=== PATIENT | female | born 1980 | race Caucasian/White ===

== ENCOUNTER 2016-08-22 00:47 | Emergency (ER) | payer MEDICAID, OTHER ==
[2016-08-22 00:56] VITALS: BP 128/83; PULSE 82; RESP 18; TEMP 98
--- NOTE | 2016-08-22 01:36 | ED ---
Upper Extremity HPI - General Chief Complaint: Extremity Injury, Upper Stated Complaint: elbow pain- [facility] Time Seen by Provider: 08/22/16 01:05 Source: patient, RN notes reviewed, old records reviewed Mode of arrival: ambulatory Limitations: no limitations - History of Present Illness Initial Comments: Patient is a 35-year-old female with chief complaint of right elbow pain after trying to pull a patient bed. She is a registered nurse. Patient reports that she felt a clicking sensation in her right right elbow. She denies any specific bony tenderness. She states that the pain is worse with flexing and extending her wrist. She denies any pain with supination and pronation. Patient states that she's never had any injuries on her elbow or wrist before.Patient denies any recent fever, chills, shortness of breath, chest pain , back pain, abdominal pain, nausea vomiting, numbness or tingling, dysuria or hematuria, constipation or diarrhea, headaches or visual changes, or any other current symptoms - Related Data Home Medications Medication Instructions Recorded Confirmed No Known Home Medications [No 08/22/16 08/22/16 Known Home Medications] Allergies Allergy/AdvReac Type Severity Reaction Status Date / Time No Known Allergies Allergy Verified 08/22/16 00:53 Review of Systems ROS Statement: Those systems with pertinent positive or pertinent negative responses have been documented in the HPI. ROS Other: All systems not noted in ROS Statement are negative. Past Medical History Additional Past Medical History / Comment(s): celiac History of Any Multi-Drug Resistant Organisms: None Reported Past Surgical History: Adenoidectomy, Tonsillectomy Past Psychological History: No Psychological Hx Reported Smoking Status: Never smoker Past Alcohol Use History: None Reported Past Drug Use History: None Reported General Exam - General Exam Comments Initial Comments: Well-appearing 35-year-old female. No acute distress. Limitations: no limitations General appearance: alert, in no apparent distress Head exam: Present: atraumatic, normocephalic, normal inspection Eye exam: Present: normal appearance, PERRL, EOMI. Absent: scleral icterus, conjunctival injection, periorbital swelling ENT exam: Present: normal exam, mucous membranes moist Neck exam: Present: normal inspection. Absent: tenderness, meningismus, lymphadenopathy Respiratory exam: Present: normal lung sounds bilaterally. Absent: respiratory distress, wheezes, rales, rhonchi, stridor Cardiovascular Exam: Present: regular rate, normal rhythm, normal heart sounds. Absent: systolic murmur, diastolic murmur, rubs, gallop, clicks GI/Abdominal exam: Present: soft, normal bowel sounds. Absent: distended, tenderness, guarding, rebound, rigid Extremities exam: Present: normal inspection, full ROM, normal capillary refill. Absent: tenderness, pedal edema, joint swelling, calf tenderness Right Shoulder Exam: Present: normal inspection, full ROM. Absent: tenderness, swelling, abrasion Upper Arm exam: Present: normal inspection, full ROM. Absent: tenderness, swelling Elbow exam: Present: normal inspection, full ROM, swelling (Mild swelling over the olecranon process.). Absent: tenderness, abrasion Forearm Wrist exam: Present: normal inspection, full ROM Hand Wrist exam: Present: normal inspection, full ROM. Absent: tenderness, swelling, abrasion Back exam: Present: normal inspection Neurological exam: Present: alert, oriented X3, CN II-XII intact Psychiatric exam: Present: normal affect, normal mood Skin exam: Present: warm, dry, intact, normal color. Absent: rash Course Vital Signs 08/22/16 00:53 Temperature 98.0 F Pulse Rate 82 Respiratory 18 Rate Blood Pressure 128/83 O2 Sat by Pulse 98 Oximetry Medical Decision Making - Medical Decision Making Right elbow x-ray was obtained. Patient reports that she does not want any pain medication and just wants to put ice over her elbow. Patient's x-rays reviewed as negative for any acute process. Patient was given an Chang wrap. I will give the patient referral for orthopedic physician. Is likely patient has a tendon or ligament disruption causing the pain. Patient was advised of this and understands treatment plan will comply. Return parameters were discussed. Patient was given a return to work slip with limited use of the right arm and elbow. I told her to limit pushing and pulling things and to ice the arm as much as possible. - Radiology Data Radiology results: report reviewed X-ray shows no evidence of any acute fracture dislocation. His regular Dr. Ifeanyi malik. Disposition Clinical Impression: Sprain of right elbow Disposition: HOME SELF-CARE Condition: Good Instructions: Elbow Sprain (ED) Additional Instructions: Patient was sitting Motrin Tylenol for pain. Patient advised to keep elbow and Chang wrap. Follow-up with orthopedic physician if symptoms continue to persist. Referrals: None,Stated [Primary Care Provider] - 1-2 days Rashawn Boone MD [Medical Doctor] - 1-2 days Time of Disposition: 01:36
--- NOTE | 2016-08-22 01:46 | XR ---
EXAMINATION TYPE: XR elbow complete RT DATE OF EXAM: 08/22/2016 1:21 AM CLINICAL HISTORY: pain TECHNIQUE: Frontal, lateral and oblique images of the right elbow are obtained. COMPARISON: None. FINDINGS: There is no acute fracture/dislocation evident of the elbow. No abnormal fat pad signs ar e seen. The overlying soft tissue appears unremarkable. IMPRESSION: There is no acute fracture or dislocation of the elbow. ICD 10 NO FRACTURE, INITIAL EVALUATION
== END 2016-08-22 01:50 | disposition home or self-care (01) ==
LOC: EC 00:47
DX: S53.401A Unspecified sprain of right elbow, initial encounter (principal); X50.9XXA Other and unspecified overexertion or strenuous movements or postures, initial encounter; Y93.89 Activity, other specified; Y92.69 Other specified industrial and construction area as the place of occurrence of the external cause; Y99.0 Civilian activity done for income or pay
CPT/HCPCS: 99283

== ENCOUNTER 2017-10-26 07:43 | Emergency (ER) | payer MEDICAID ==
[2017-10-26 07:47] VITALS: RESP 18; TEMP 97.6
--- NOTE | 2017-10-26 08:46 | XR ---
EXAMINATION TYPE: XR foot complete LT DATE OF EXAM: 10/26/2017 COMPARISON: NONE HISTORY: Pain TECHNIQUE: Three views are submitted. FINDINGS: The osseous structures are intact and the joint spaces are preserved. There is no acute fracture or dislocation. Nonspecific soft tissue edema noted. IMPRESSION: 1. No acute fracture or dislocation. If symptoms persist, follow-up exam in 7 to 10 days could be ob tained.
--- NOTE | 2017-10-26 08:50 | ED ---
Extremity Problem HPI - General Chief complaint: Extremity Problem,Nontraumatic Stated complaint: swollen ankle Time Seen by Provider: 10/26/17 08:17 Source: patient, RN notes reviewed Mode of arrival: ambulatory Limitations: no limitations - History of Present Illness Initial comments: This is a 37-year-old female presents emergency department to complaint of swelling to her left foot. She states this has been present for last 2-3 weeks with no reason. She states that she was seen at [facility] had x-rays three-view with no acute abnormality's. She states Veto 8 months ago she had an ankle sprain and they just assume is worse cause of it. Patient states that she did have slight discomfort in her left calf left popliteal region though she has no prior history DVT denies any injury. She denies chest pain, shortness of breath. She states the redness on her foot dissipates only present when she wears a shoe rubs or foot. Patient states that she had labwork this morning showed a mild elevation white count within normal sed rate and uric acid. Patient states that the swelling is worse with denies any fevers or chills. - Related Data Home Medications Medication Instructions Recorded Confirmed No Known Home Medications [No 08/22/16 10/26/17 Known Home Medications] Allergies Allergy/AdvReac Type Severity Reaction Status Date / Time gluten Allergy Rash/Hives Verified 10/26/17 07:51 Review of Systems ROS Statement: Those systems with pertinent positive or pertinent negative responses have been documented in the HPI. ROS Other: All systems not noted in ROS Statement are negative. Past Medical History Additional Past Medical History / Comment(s): celiac History of Any Multi-Drug Resistant Organisms: None Reported Past Surgical History: Adenoidectomy, Tonsillectomy Past Psychological History: No Psychological Hx Reported Smoking Status: Never smoker Past Alcohol Use History: None Reported Past Drug Use History: None Reported General Exam Limitations: no limitations General appearance: alert, in no apparent distress Head exam: Present: atraumatic, normocephalic, normal inspection Eye exam: Present: normal appearance, PERRL, EOMI. Absent: scleral icterus, conjunctival injection, periorbital swelling Respiratory exam: Present: normal lung sounds bilaterally. Absent: respiratory distress, wheezes, rales, rhonchi, stridor Cardiovascular Exam: Present: regular rate, normal rhythm, normal heart sounds. Absent: systolic murmur, diastolic murmur, rubs, gallop, clicks Extremities exam: Present: other (Left foot there is moderate swelling pedal pulses are equal bilaterally there is tenderness on the dorsal aspect of the foot with no tenderness on the plantar surface Refill less than 2 seconds, there is no tenderness over left malleolus region, there is no calf tenderness or no tenderness to left knee. Left knee full range of motion there is no warmth the left foot or left leg) Neurological exam: Present: alert, oriented X3, CN II-XII intact. Absent: motor sensory deficit Skin exam: Present: warm, dry, intact, normal color. Absent: rash Course Vital Signs 10/26/17 10/26/17 07:43 09:15 Temperature 97.6 F Pulse Rate 94 78 Respiratory 18 18 Rate Blood Pressure 126/76 118/70 O2 Sat by Pulse 100 98 Oximetry Medical Decision Making - Medical Decision Making This is a 37-year-old female presented to the emergency department for left foot swelling. Patient had x-ray and ultrasound in the ER which was negative for acute fracture or evidence of DVT. Patient had lab work this morning which I did review ESR was low-normal, normal uric acid. There is no major abnormalities. I did explain the patient that there is no evident cause for her foot edema that she should follow-up with orthopedics may require MRI versus nuclear med study. She does agree to this plan. She will continue to conservative treatment with ibuprofen elevation and ice and return for any worsening symptoms. Disposition Clinical Impression: Foot swelling, Left foot pain Disposition: HOME SELF-CARE Condition: Stable Instructions: Leg Edema (ED) Additional Instructions: Please return to the Emergency Department if symptoms worsen or any other concerns. Is patient prescribed a controlled substance at d/c from ED?: No Referrals: Rashawn Boone MD [Medical Doctor] - 1-2 days Time of Disposition: 09:38
[2017-10-26 09:16] VITALS: BP 118/70; PULSE 78
--- NOTE | 2017-10-26 09:23 | US ---
EXAMINATION TYPE: US venous doppler duplex LE LT DATE OF EXAM: 10/26/2017 8:27 AM COMPARISON: NONE CLINICAL HISTORY: Pain, swelling, and redness in left foot. SIDE PERFORMED: Left TECHNIQUE: The lower extremity deep venous system is examined utilizing real time linear array sonog maya with graded compression, doppler sonography and color-flow sonography. VESSELS IMAGED: External Iliac Vein (EIV) Common Femoral Vein Deep Femoral Vein Greater Saphenous Vein * Femoral Vein Popliteal Vein Small Saphenous Vein * Proximal Calf Veins (* superficial vessels) Left Leg: Negative for DVT IMPRESSION: 1. No diagnostic evidence of DVT as visualized.
== END 2017-10-26 09:50 | disposition home or self-care (01) ==
LOC: EC 07:43
DX: M79.89 Other specified soft tissue disorders (principal); M79.672 Pain in left foot; Z91.018 Allergy to other foods
CPT/HCPCS: 36415; 80053; 83520; 84443; 84550; 85027; 85652; 86038; 86060; 86140; 86431; 86618; 86812; 99284

== ENCOUNTER → 2017-10-26 | Outpatient (CLI) | payer MEDICAID ==
[2017-10-26 02:19] LABS: HCT 36.8 % (34.0-46.0); HGB 13.3 gm/dL (11.4-16.0); MCH 30.2 pg (25.0-35.0); MCHC 36.1 g/dL (31.0-37.0); MCV 83.5 fL (80.0-100.0); Mean Platelet Volume 6.7; Platelet Count 321 k/uL (150-450); RDW 13.1 % (11.5-15.5); WBC 12.1 k/uL (3.8-10.6)
[2017-10-26 03:11] LABS: ALT 18 U/L (9-52); AST 12 U/L (14-36); Albumin 4.1 g/dL (3.5-5.0); Alkaline Phosphatase 53 U/L (38-126); Anion Gap 15 mmol/L; Blood Urea Nitrogen 15 mg/dL (7-17); Calcium 9.6 mg/dL (8.4-10.2); Carbon Dioxide 26 mmol/L (22-30); Chloride 101 mmol/L (98-107); Glucose 100 mg/dL (74-99); Potassium 3.9 mmol/L (3.5-5.1); Sodium 142 mmol/L (137-145); Total Bilirubin 0.2 mg/dL (0.2-1.3); Total Protein 6.5 g/dL (6.3-8.2); Uric Acid 5.8 mg/dL (3.7-7.4)
[2017-10-26 04:12] LABS: Erythrocyte Sedimentation Rate 6 mm/hr (0-20)
== END | disposition home or self-care (01) ==
LOC: LABMAIN 02:00
PROVIDERS: ATTEND Hospitalist
DX: Z53.9 Procedure and treatment not carried out, unspecified reason (principal)
CPT/HCPCS: 36415; 80053; 84550; 85027; 85652

== ENCOUNTER → 2017-10-26 | Outpatient (CLI) | payer MEDICAID ==
[2017-10-26 17:12] LABS: HCT 36.4 % (34.0-46.0); MCH 30.6 pg (25.0-35.0); MCHC 35.9 g/dL (31.0-37.0); MCV 85.1 fL (80.0-100.0); Mean Platelet Volume 7.5; Platelet Count 304 k/uL (150-450); RBC 4.27 m/uL (3.80-5.40); RDW 13.4 % (11.5-15.5); WBC 10.1 k/uL (3.8-10.6)
[2017-10-26 17:17] LABS: C Reactive Protein 9.2 mg/L (<10.0); Uric Acid 5.7 mg/dL (3.7-7.4)
[2017-10-26 19:25] LABS: Erythrocyte Sedimentation Rate 7 mm/hr (0-20)
[2017-10-27 02:07] LABS: Rheumatoid Factor 4 IU/mL (0-15); Streptolysin O Ab(ASO) <25 IU/mL (0-200)
[2017-10-27 13:33] LABS: HLA B27 NEGATIVE
== END | disposition home or self-care (01) ==
LOC: LABWHC1 16:10
PROVIDERS: ATTEND Orthopaedic Surgery
DX: Z53.9 Procedure and treatment not carried out, unspecified reason (principal)
CPT/HCPCS: 36415; 83520; 84443; 84550; 85027; 85652; 86038; 86060; 86140; 86431; 86618; 86812

== ENCOUNTER 2018-05-03 02:24 | Emergency (ER) | payer MEDICAID ==
[2018-05-03 02:30] VITALS: TEMP 99.2
--- NOTE | 2018-05-03 03:09 | ED ---
URI HPI - General Source: patient, RN notes reviewed, old records reviewed Mode of arrival: ambulatory Limitations: no limitations <Whitney Hartman - Last Filed: 05/03/18 04:12> <iMranda Quick P - Last Filed: 05/03/18 05:05> - General Chief Complaint: Upper Respiratory Infection Stated Complaint: SOB,Chest pain Time Seen by Provider: 05/03/18 02:37 - History of Present Illness Initial Comments: 37-year-old female presents emergency Department due to complaint of increasing shortness of breath and cough over the past month. 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 She denies any specific chest pain without taking a deep breath. She reports that she's had a dry cough. She is a nonsmoker. Patient relates that she has had no recent fevers or chills. Patient states she has no cardiac history. Patient denies any history of lung disease or asthma. Patient reports that she feels flushed. She states she took her pulse ox this morning and was 87% on room air. She reports she had some wheezing and rhonchi noted at that time. Patient relates that she's had no abdominal pain. Denies any weight loss. (Whitney Hartman) - Related Data Previous Rx's Medication Instructions Recorded Azithromycin 250 mg PO DAILY 4 Days #4 tab 05/03/18 Allergies Allergy/AdvReac Type Severity Reaction Status Date / Time gluten Allergy Rash/Hives Verified 05/03/18 02:30 Review of Systems ROS Other: All systems not noted in ROS Statement are negative. <Whitney Hartman - Last Filed: 05/03/18 04:12> ROS Other: All systems not noted in ROS Statement are negative. <Miranda Quick P - Last Filed: 05/03/18 05:05> ROS Statement: Those systems with pertinent positive or pertinent negative responses have been documented in the HPI. Past Medical History Additional Past Medical History / Comment(s): celiac History of Any Multi-Drug Resistant Organisms: None Reported Past Surgical History: Adenoidectomy, Tonsillectomy Past Psychological History: No Psychological Hx Reported Smoking Status: Never smoker Past Alcohol Use History: None Reported Past Drug Use History: None Reported <Whitney Hartman - Last Filed: 05/03/18 04:12> General Exam Limitations: no limitations General appearance: alert, in no apparent distress Head exam: Present: atraumatic, normocephalic, normal inspection Eye exam: Present: normal appearance, PERRL, EOMI. Absent: scleral icterus, conjunctival injection, periorbital swelling ENT exam: Present: normal exam, normal oropharynx, mucous membranes moist Neck exam: Present: normal inspection. Absent: tenderness, meningismus, lymphadenopathy Respiratory exam: Present: normal lung sounds bilaterally. Absent: respiratory distress, wheezes, rales, rhonchi, stridor Cardiovascular Exam: Present: regular rate, normal rhythm, normal heart sounds. Absent: systolic murmur, diastolic murmur, rubs, gallop, clicks GI/Abdominal exam: Present: soft, normal bowel sounds. Absent: distended, tenderness, guarding, rebound, rigid Extremities exam: Present: normal inspection, full ROM, normal capillary refill. Absent: tenderness, pedal edema, joint swelling, calf tenderness Back exam: Present: normal inspection Neurological exam: Present: alert, oriented X3, CN II-XII intact Psychiatric exam: Present: normal affect, normal mood Skin exam: Present: warm, dry, intact, normal color. Absent: rash <Whitney Hartman - Last Filed: 05/03/18 04:12> <Miranda Quick - Last Filed: 05/03/18 05:05> - General Exam Comments Initial Comments: Well-appearing 37-year-old female. (Whitney Hartman) Vital Signs 05/03/18 05/03/18 05/03/18 02:26 03:36 03:46 Temperature 99.2 F Pulse Rate 108 H 84 80 Respiratory 20 Rate Blood Pressure 119/74 O2 Sat by Pulse 98 Oximetry 05/03/18 05/03/18 05/03/18 04:10 04:20 04:30 Temperature Pulse Rate 103 H 107 H 102 H Respiratory 19 14 8 L Rate Blood Pressure 132/86 132/86 132/86 O2 Sat by Pulse Oximetry 05/03/18 05/03/18 04:40 04:50 Temperature Pulse Rate 98 103 H Respiratory 13 12 Rate Blood Pressure 119/72 119/72 O2 Sat by Pulse Oximetry Medical Decision Making - Radiology Data Radiology results: report reviewed <Whitney Hartman - Last Filed: 05/03/18 04:12> - Lab Data Result diagrams: 05/03/18 03:57 05/03/18 03:57 <Miranda Quick - Last Filed: 05/03/18 05:05> - Medical Decision Making This Patient is a 37-year-old female with progressive shortness of breath, feeling flushed and cough for the past month. Patient is a nurse. Lungs are clear to auscultation and vital signs have been stable she is slightly febrile at 99.2 tachycardia and 102 bpm. Patient had a chest x-ray which showed diffuse multifocal opacities and recommended a CT of her chest. (Whitney Hartman ) Patient care was signed out to me by Whitney Hartman PA-C, patient presented with 1 day of cough. 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 She's had no international travel, has no history of any type of immunocompromise, is not diabetic, has no history of fungal infection the past. Patient's chest x-ray revealed a multifocal pneumonia versus metastatic disease and recommended a CT. Computed tomography scan was ordered and reviewed , CT scan reveals multifocal pneumonia of unknown etiology, the etiology was broad. However Patient's has no risk factors, is hemodynamically stable, not hypoxic. I offered the patient admission to the hospital for evaluation by pulmonology, however the patient would like to decline admission at this time. She is comfortable being discharged home and attempting a course of oral antibiotics. Considering that the patient is relatively young, healthy with no hypoxia, uremia, confusion or shortness of breath I do feel she is stable for discharge home. Return parameters were discussed. The first dose of azithromycin was ordered in the emergency department and a prescription for the remainder dose was provided. (Miranda Quick) - Lab Data Lab Results 05/03/18 05/03/18 05/03/18 Range/Units 03:57 03:57 03:57 WBC 16.8 H (3.8-10.6) k/uL RBC 4.51 (3.80-5.40) m/uL Hgb 13.5 (11.4-16.0) gm/dL Hct 39.2 (34.0-46.0) % MCV 86.9 (80.0-100.0) fL MCH 30.0 (25.0-35.0) pg MCHC 34.5 (31.0-37.0) g/dL RDW 13.1 (11.5-15.5) % Plt Count 307 (150-450) k/uL Neutrophils % 68 % Lymphocytes % 17 % Monocytes % 7 % Eosinophils % 6 % Basophils % 0 % Neutrophils # 11.5 H (1.3-7.7) k/uL Lymphocytes # 2.8 (1.0-4.8) k/uL Monocytes # 1.2 H (0-1.0) k/uL Eosinophils # 1.0 H (0-0.7) k/uL Basophils # 0.1 (0-0.2) k/uL PT (9.0-12.0) sec INR (<1.2) APTT (22.0-30.0) sec Sodium 139 (137-145) mmol/L Potassium 3.7 (3.5-5.1) mmol/L Chloride 103 (98-107) mmol/L Carbon Dioxide 27 (22-30) mmol/L Anion Gap 9 mmol/L BUN 9 (7-17) mg/dL Creatinine 0.70 (0.52-1.04) mg/dL Est GFR (CKD-EPI)AfAm >90 (>60 ml/min/1.73 sqM) Est GFR (CKD-EPI)NonAf >90 (>60 ml/min/1.73 sqM) Glucose 124 H (74-99) mg/dL Calcium 9.5 (8.4-10.2) mg/dL Magnesium 2.0 (1.6-2.3) mg/dL Total Bilirubin 0.4 (0.2-1.3) mg/dL AST 15 (14-36) U/L ALT 28 (9-52) U/L Alkaline Phosphatase 56 (38-126) U/L Total Creatine Kinase 30 (30-135) U/L CK-MB (CK-2) <0.2 (0.0-2.4) ng/mL CK-MB (CK-2) Rel Index Troponin I <0.012 (0.000-0.034) ng/mL Total Protein 6.6 (6.3-8.2) g/dL Albumin 3.7 (3.5-5.0) g/dL 05/03/18 Range/Units 03:57 WBC (3.8-10.6) k/uL RBC (3.80-5.40) m/uL Hgb (11.4-16.0) gm/dL Hct (34.0-46.0) % MCV (80.0-100.0) fL MCH (25.0-35.0) pg MCHC (31.0-37.0) g/dL RDW (11.5-15.5) % Plt Count (150-450) k/uL Neutrophils % % Lymphocytes % % Monocytes % % Eosinophils % % Basophils % % Neutrophils # (1.3-7.7) k/uL Lymphocytes # (1.0-4.8) k/uL Monocytes # (0-1.0) k/uL Eosinophils # (0-0.7) k/uL Basophils # (0-0.2) k/uL PT 10.6 (9.0-12.0) sec INR 1.1 (<1.2) APTT 27.1 (22.0-30.0) sec Sodium (137-145) mmol/L Potassium (3.5-5.1) mmol/L Chloride (98-107) mmol/L Carbon Dioxide (22-30) mmol/L Anion Gap mmol/L BUN (7-17) mg/dL Creatinine (0.52-1.04) mg/dL Est GFR (CKD-EPI)AfAm (>60 ml/min/1.73 sqM) Est GFR (CKD-EPI)NonAf (>60 ml/min/1.73 sqM) Glucose (74-99) mg/dL Calcium (8.4-10.2) mg/dL Magnesium (1.6-2.3) mg/dL Total Bilirubin (0.2-1.3) mg/dL AST (14-36) U/L ALT (9-52) U/L Alkaline Phosphatase (38-126) U/L Total Creatine Kinase (30-135) U/L CK-MB (CK-2) (0.0-2.4) ng/mL CK-MB (CK-2) Rel Index Troponin I (0.000-0.034) ng/mL Total Protein (6.3-8.2) g/dL Albumin (3.5-5.0) g/dL 05/03/18 04:12 EKG performed at 401 shows sinus tachycardia low blood curious. Cannot rule out inferior infarct age undetermined. Cannot rule out anterior infarct age undetermined. Ventricular rate of [address] interval is 138 ms. QRS duration 86 ms. QT QTc is 346/461 ms. No evidence of ST elevation or T-wave inversion. (Whitney Hartman) - Radiology Data Diffuse multifocal patchy opacities versus mass within the lungs bilaterally. Recommended CT of the chest with contrast. (Whitney Hartman) Disposition <Whitney Hartman - Last Filed: 05/03/18 04:12> Is patient prescribed a controlled substance at d/c from ED?: No <Miranda Quick - Last Filed: 05/03/18 05:05> Clinical Impression: Multifocal pneumonia Disposition: HOME SELF-CARE Instructions: Bacterial Pneumonia (DC) Prescriptions: Azithromycin 250 mg PO DAILY 4 Days #4 tab Referrals: None,Stated [Primary Care Provider] - 1-2 days
[2018-05-03] MEDS ORDERED: ACETAMINOPHEN TAB 500 MG TAB PO STA (03:26)
[2018-05-03] MEDS ORDERED: IBUPROFEN 600 MG TAB PO STA (03:26)
[2018-05-03] MEDS ORDERED: IPRATROPIUM-ALBUTEROL 3 ML NEB INHALATION STA (03:27)
--- NOTE | 2018-05-03 03:27 | XR ---
EXAM: XR Chest, 2 Views CLINICAL HISTORY: ITS.REASON XR Reason: Pain TECHNIQUE: Frontal and lateral views of the chest. COMPARISON: No relevant prior studies available. FINDINGS: Lungs: Multifocal diffuse mass versus patchy opacities throughout the lungs. Pleural space: No effusion. Heart: No cardiomegaly. Mediastinum: Unremarkable. Bones/joints: No acute findings. IMPRESSION: Diffuse multifocal patchy opacities versus mass within the lungs bilaterally. Recommend chest CT with contrast.
[2018-05-03] MEDS ORDERED: SODIUM CHLORIDE 0.9% 1,000 ML IV STA (03:30)
[2018-05-03 04:13] LABS: Basophils # (A) 0.1 k/uL (0-0.2); Basophils % (A) 0 %; Eosinophils % (A) 6 %; HCT 39.2 % (34.0-46.0); HGB 13.5 gm/dL (11.4-16.0); Lymphocytes # (A) 2.8 k/uL (1.0-4.8); Lymphocytes % (A) 17 %; MCHC 34.5 g/dL (31.0-37.0); MCV 86.9 fL (80.0-100.0); Mean Platelet Volume 7.2; Monocytes # (A) 1.2 k/uL (0-1.0); Monocytes % (A) 7 %; Neutrophils # (A) 11.5 k/uL (1.3-7.7); Neutrophils % (A) 68 %; Platelet Count 307 k/uL (150-450); RBC 4.51 m/uL (3.80-5.40); RDW 13.1 % (11.5-15.5); WBC 16.8 k/uL (3.8-10.6)
[2018-05-03 04:23] LABS: ALT 28 U/L (9-52); AST 15 U/L (14-36); Albumin 3.7 g/dL (3.5-5.0); Alkaline Phosphatase 56 U/L (38-126); Anion Gap 9 mmol/L; Blood Urea Nitrogen 9 mg/dL (7-17); Calcium 9.5 mg/dL (8.4-10.2); Carbon Dioxide 27 mmol/L (22-30); Chloride 103 mmol/L (98-107); Glucose 124 mg/dL (74-99); Potassium 3.7 mmol/L (3.5-5.1); Sodium 139 mmol/L (137-145); Total Bilirubin 0.4 mg/dL (0.2-1.3); Total Protein 6.6 g/dL (6.3-8.2)
[2018-05-03 04:24] LABS: INR 1.1 (<1.2); Partial Thromboplastin Time 27.1 sec (22.0-30.0); Prothrombin Time 10.6 sec (9.0-12.0)
[2018-05-03 04:35] LABS: Creatine Kinase 30 U/L (30-135)
[2018-05-03 04:48] LABS: Creatine Kinase MB <0.2 ng/mL (0.0-2.4); Troponin I <0.012 ng/mL (0.000-0.034)
--- NOTE | 2018-05-03 04:51 | CT ---
EXAM: CT Angiography Chest With Intravenous Contrast CLINICAL HISTORY: ITS.REASON CT Reason: Pain TECHNIQUE: Axial computed tomographic angiography images of the chest with intravenous contrast using pulmonary embolism protocol. CTDI is 13 mGy and DLP is 382 mGy-cm. This CT exam was performed using one or more of the following dose reduction techniques: automated exposure control, adjustment of the mA and/or kV according to patient size, and/or use of iterative reconstruction technique. MIP reconstructed images were created and reviewed. COMPARISON: Chest x-ray same day FINDINGS: Pulmonary arteries: No filling defects. Aorta: No acute findings. No thoracic aortic aneurysm. Lungs: Multifocal numerous mandy-bronchovascular consolidations throughout the lungs, some which has a reverse halo sign. Pleural space: Trace bilateral pleural effusions. Heart: No cardiomegaly or pericardial effusion. Bones/joints: No acute fracture or dislocation. Mild degenerative changes. Soft tissues: Unremarkable. Lymph nodes: No enlarged lymph nodes. IMPRESSION: 1. Multifocal numerous consolidations throughout the lungs with bilateral trace pleural effusions. Given the appearance of the consolidations, some of which appears to have a reverse halo sign and is distributed along the mandy-bronchovascular structures, the differential is broad but this may represent organizing pneumonia (such as cryptogenic type), opportunistic/fungal infection, atypical bacteria, typical bacteria, or mycobacterial infection. Recommend pulmonary consultation. Recommend follow-up imaging in 6-8 weeks to ensure resolution after appropriate treatment.
[2018-05-03] MEDS ORDERED: AZITHROMYCIN 500 MG TAB PO STA (05:02)
[2018-05-03 05:33] VITALS: BP 122/76; PULSE 99; RESP 36
== END 2018-05-03 05:34 | disposition home or self-care (01) ==
LOC: EC 02:24
DX: J18.9 Pneumonia, unspecified organism (principal); R06.2 Wheezing; R00.0 Tachycardia, unspecified; Z53.29 Procedure and treatment not carried out because of patient's decision for other reasons; Z91.018 Allergy to other foods
CPT/HCPCS: 36415; 94640; 93005; 80053; 82550; 82553; 83735; 84484; 85025; 85610; 85730; 71046; 71275; 99285; 96360; Q9967

== ENCOUNTER → 2018-05-06 | Outpatient (CLI) | payer MEDICAID | LOC: LABWHC1 16:25 | PROVIDERS: ATTEND Internal Medicine Critical Care Medicine | DX: J18.9 Pneumonia, unspecified organism (principal) | CPT/HCPCS: 87449 ==

== ENCOUNTER 2022-06-22 01:06 | Emergency (ER) | payer OTHER, MEDICAID ==
[2022-06-22 01:12] VITALS: BP 141/89; PULSE 113; RESP 18; TEMP 97.8
--- NOTE | 2022-06-22 01:27 | ED ---
Back Pain HPI - General Chief Complaint: Back Pain/Injury Stated Complaint: [facility] back injury Time Seen by Provider: 06/22/22 01:15 Source: patient Limitations: no limitations - Related Data Previous Rx's Medication Instructions Recorded Azithromycin 250 mg PO DAILY 4 Days #4 tab 05/03/18 Allergies Allergy/AdvReac Type Severity Reaction Status Date / Time gluten Allergy Rash/Hives Verified 06/22/22 01:12 Review of Systems ROS Statement: Those systems with pertinent positive or pertinent negative responses have been documented in the HPI. ROS Other: All systems not noted in ROS Statement are negative. Past Medical History Additional Past Medical History / Comment(s): celiac History of Any Multi-Drug Resistant Organisms: None Reported Past Surgical History: Adenoidectomy, Tonsillectomy Past Psychological History: Anxiety, Depression Smoking Status: Never smoker Past Alcohol Use History: None Reported Past Drug Use History: None Reported General Exam Limitations: no limitations Course Vital Signs 06/22/22 01:10 Temperature 97.8 F Pulse Rate 113 H Respiratory 18 Rate Blood Pressure 141/89 O2 Sat by Pulse 96 Oximetry Disposition Clinical Impression: Mid back pain, Mechanical back pain Disposition: HOME SELF-CARE Condition: Good Instructions (If sedation given, give patient instructions): Acute Low Back Pain (ED) Is patient prescribed a controlled substance at d/c from ED?: No Referrals: None,Stated [Primary Care Provider] - 1-2 days Time of Disposition: 01:30
== END 2022-06-22 01:32 | disposition home or self-care (01) ==
LOC: EC 01:06
DX: M54.50 Low back pain, unspecified (principal); F41.9 Anxiety disorder, unspecified; F32.A Depression, unspecified; Z88.8 Allergy status to other drugs, medicaments and biological substances
CPT/HCPCS: 99282

== ENCOUNTER → 2022-06-30 | Outpatient (CLI) | payer OTHER ==
--- NOTE | 2022-06-30 10:14 | XR ---
EXAMINATION TYPE: XR thoracic spine 3 views complete, XR lumbar spine 3V DATE OF EXAM: 06/30/2022 Comparison: None Clinical History: 41-year-old female S23.3XXD, S33.5XXD Findings: Thoracic spine: 12 rib-bearing thoracic vertebral bodies. All pedicles are visualized. Slight accentuated mid to lowe r thoracic kyphosis with mild to moderate degenerative disc disease. Vertebral body heights are prese rved and alignment is maintained. Lumbar spine: 5 lumbar type vertebral bodies. Minimal early degenerative disc disease throughout. Vertebral body he ights are preserved and alignment is maintained. Impression: 1. Thoracic spine: Accentuated mid to lower thoracic kyphosis with mild to moderate degenerative disc disease. No vertebral compression collapse or malalignment. 2. Lumbar spine: Minimal early degenerative disc disease. No vertebral compression collapse or malali gnment.
== END | disposition home or self-care (01) ==
LOC: RADXRMAIN 09:38
PROVIDERS: ATTEND Emergency Medicine
DX: S23.3XXD Sprain of ligaments of thoracic spine, subsequent encounter (principal); S33.5XXD Sprain of ligaments of lumbar spine, subsequent encounter
CPT/HCPCS: 72072; 72100